=== PATIENT | female | born 1940 | race Two or more races ===

== ENCOUNTER 2018-12-23 10:44 | Outpatient (CLI) | payer OTHER | END 2018-12-23 10:47 | disposition home or self-care (01) | LOC: RX STUDY 10:44 | DX: K29.40 Chronic atrophic gastritis without bleeding (principal); E88.89 Other specified metabolic disorders ==

== ENCOUNTER 2020-09-23 16:37 | Emergency (ER) | payer OTHER ==
[~2020-09-23] VITALS: Ht 147.3 cm; Wt 43.1 kg
[2020-09-23] MEDS ORDERED: ZOFRAN8 MG PO (19:50)
== END 2020-09-23 20:55 | disposition home or self-care (01) ==
LOC: ER 16:37
DX: R42 Dizziness and giddiness (principal); Z11.52 Encounter for screening for COVID-19

== ENCOUNTER 2020-12-15 23:58 | Emergency (ER) | payer OTHER ==
[~2020-12-15] VITALS: Ht 142.2 cm; Wt 36.3 kg
[~2020-12-15 23:58] MED LIST: ZOFRAN8 MG PO
[2020-12-16] MEDS ORDERED: OLMESARTAN MEDOX5 MG PO (00:15)
== END 2020-12-16 03:25 ==
LOC: ER 23:58
DX: I16.0 Hypertensive urgency (principal); R00.2 Palpitations

== ENCOUNTER 2021-03-31 20:42 | Emergency (ER) | payer OTHER ==
[~2021-03-31] VITALS: Ht 142.2 cm; Wt 39.5 kg
[~2021-03-31 20:42] MED LIST changes: +OLMESARTAN MEDOX5 MG PO
[2021-03-31] MEDS ORDERED: AMLODIPINE 5 MG. (21:10)
[2021-03-31] MEDS ORDERED: LOSARTAN-HCTZ1 EAC1 (21:11)
[2021-03-31] MEDS ORDERED: ASPIRINA 81 MG. (21:11)
[2021-04-01] MEDS ORDERED: PEPCID AC20 MG PO (07:55)
[2021-04-01] MEDS ORDERED: INTESTINEX680 M2 PO (07:55)
[2021-04-01] MEDS ORDERED: LEVALBUTER1.25 MG/3 IH (07:55)
== END 2021-04-01 08:39 | disposition home or self-care (01) ==
LOC: ER 20:42
DX: E87.1 Hypo-osmolality and hyponatremia (principal); E86.0 Dehydration; R06.02 Shortness of breath; Z03.818 Encounter for observation for suspected exposure to other biological agents ruled out

== ENCOUNTER 2021-07-19 18:46 | Emergency (ER) | payer OTHER ==
[~2021-07-19] VITALS: Ht 152.4 cm; Wt 44.9 kg
[~2021-07-19 18:46] MED LIST changes: +AMLODIPINE 5 MG.; +ASPIRINA 81 MG.; +INTESTINEX680 M2 PO; +LEVALBUTER1.25 MG/3 IH; +LOSARTAN-HCTZ1 EAC1; +PEPCID AC20 MG PO
== END 2021-07-19 21:22 | disposition home or self-care (01) ==
LOC: ER 18:46
DX: R20.0 Anesthesia of skin (principal); Z88.2 Allergy status to sulfonamides; Z88.8 Allergy status to other drugs, medicaments and biological substances; Z91.013 Allergy to seafood; Z72.0 Tobacco use

== ENCOUNTER 2021-08-06 22:31 | Emergency (ER) | payer OTHER ==
[~2021-08-06] VITALS: Ht 142.2 cm; Wt 38.1 kg
[2021-08-06] MEDS ORDERED: ALDACTONE25 MG (23:09)
[2021-08-06] MEDS ORDERED: NORVASC10 MG (23:09)
== END 2021-08-07 01:23 ==
LOC: ER 22:31
DX: I10 Essential (primary) hypertension (principal); Z88.1 Allergy status to other antibiotic agents; Z88.8 Allergy status to other drugs, medicaments and biological substances; Z91.018 Allergy to other foods

== ENCOUNTER 2021-08-11 16:38 | Emergency (ER) | payer OTHER ==
[~2021-08-11] VITALS: Ht 144.8 cm; Wt 37.6 kg
[~2021-08-11 16:38] MED LIST changes: +ALDACTONE25 MG; +NORVASC10 MG
== END 2021-08-11 17:41 | disposition home or self-care (01) ==
LOC: ER 16:38
DX: I10 Essential (primary) hypertension (principal); Z88.2 Allergy status to sulfonamides; Z91.02 Food additives allergy status; Z91.018 Allergy to other foods

== ENCOUNTER 2021-09-07 19:49 | Emergency (ER) | payer OTHER ==
[~2021-09-07] VITALS: Ht 142.2 cm; Wt 36.3 kg
== END 2021-09-08 00:24 | disposition home or self-care (01) ==
LOC: ER 19:49
DX: I10 Essential (primary) hypertension (principal); Z88.2 Allergy status to sulfonamides; Z88.8 Allergy status to other drugs, medicaments and biological substances; Z91.018 Allergy to other foods